=== PATIENT | male | born 1980 | race Hispanic/Latino ===

== ENCOUNTER 2023-12-06 20:06 | Emergency (ER) | payer SELFPAY ==
[~2023-12-06] VITALS: Ht 167.6 cm; Wt 99.8 kg
[2023-12-06 23:03] VITALS: BP 148/88; PULSE 70; RESP 18; TEMP 98; O2SAT 99
[2023-12-06] MEDS: ketOROlac 15MG/ML VIAL (15MG/ML) IM STA (23:08)
[2023-12-06] MEDS: HYDROcodone/APAP 5/325 1 TAB TABLET PO STA (23:09)
== END 2023-12-06 23:15 | disposition home or self-care (01) ==
LOC: EDH 20:06
DX: M25.572 Pain in left ankle and joints of left foot (principal); M25.562 Pain in left knee; I10 Essential (primary) hypertension; M79.605 Pain in left leg
CPT/HCPCS: 99285; 93926; 93971; 73562; 96372; J1885